=== PATIENT | female | born 1995 | race Caucasian/White ===

== ENCOUNTER 2017-10-09 17:55 | Emergency (ER) | payer OTHER ==
[~2017-10-09] VITALS: Ht 152.4 cm; Wt 53.2 kg
[2017-10-09 18:19] VITALS: BP 109/56
--- NOTE | 2017-10-09 19:42 | NUR ---
PATIENT AMBULATED TO ER CHAIR B
--- NOTE | 2017-10-09 19:47 | NUR ---
PT CAME IN WITH C/O LOWER BACK PAIN [id number], PT DENIES ANY TRAUMA, PAIN, FEVER OR CHILLS WITH URINATION, COMPLAINS OF FREQUENT URINATIONS. NO OTHER S/S OF DISTRESS NOTED. MADE AWARE
--- NOTE | 2017-10-09 20:42 | NUR ---
pt sitting comfortable, no s/s of distress noted. Awating for lab results.
[2017-10-09 20:48] LABS: BILIRUBIN,URINE NEGATIVE (NEGATIVE); BLOOD, URINE NEGATIVE (NEGATIVE); COLOR,URINE YELLOW (YELLOW); LEUKOCYTE ESTERASE ,URINE 2+ (NEGATIVE); NITRITE, URINE NEGATIVE (NEGATIVE); PH,URINE 6.5 (5.0-9.0); UGLUCOSE NEGATIVE (NEGATIVE)
[2017-10-09 20:49] LABS: APPEARANCE,URINE HAZY (CLEAR)
--- NOTE | 2017-10-09 20:55 | NUR ---
PHYSCIAN WITH PT, PT IN STABLE CONDITION
[2017-10-09 20:58] LABS: RBC,URINE NONE SEEN /HPF (0-5)
[2017-10-09 21:05] VITALS: BP 110/62
--- NOTE | 2017-10-09 21:05 | NUR ---
Patient discharged with v/s stable. Written and verbal after care instructions given and explained. Patient alert, oriented and verbalized understanding of instructions. Ambulatory with steady gait. All questions addressed prior to discharge. ID band removed. Patient advised to follow up with PMD. Rx of MACROBID CAPSULE 100 MG, MOTRIN 800 MG given. Patient educated on indication of medication including possible reaction and side effects. Opportunity to ask questions provided and answered.
== END 2017-10-09 21:05 | disposition home or self-care (01) ==
LOC: MED 17:55
DX: N39.0 Urinary tract infection, site not specified (principal)
CPT/HCPCS: 81001; 81025; 87086; 99284

== ENCOUNTER 2018-04-25 16:02 | Emergency (ER) | payer OTHER ==
[~2018-04-25] VITALS: Ht 154.9 cm; Wt 53.1 kg
[2018-04-25 16:15] VITALS: BP 108/65
--- NOTE | 2018-04-25 19:39 | NUR ---
Lalitha oswald in [facility] - 04/25/18 at 1942 by JIM PT TAKEN TO BED 3
--- NOTE | 2018-04-25 20:21 | NUR ---
CALLED IN A DN OUT OF LOBBY X 3 WITHOUT ANSWER. PATIENT LEFT WITHOUT BEING SEEN BY DR. CASTAÑEDA. NO FURTHER CARE PROVIDED FOR PATIENT.
--- NOTE | 2018-04-25 20:21 | NUR ---
Note margret in ED - 04/25/18 at 2048 by MOLLY CALLED IN A DN OUT OF LOBBY X 3 WITHOUT ANSWER. PATIENT LEFT WITHOUT BEING SEEN BY DR. CABALLERO. NO FURTHER CARE PROVIDED FOR PATIENT.
== END 2018-04-25 20:21 | disposition left against medical advice (07) ==
LOC: MED 16:02
DX: R21 Rash and other nonspecific skin eruption (principal); Z53.21 Procedure and treatment not carried out due to patient leaving prior to being seen by health care provider

== ENCOUNTER 2018-05-31 12:12 | Emergency (ER) | payer OTHER ==
[~2018-05-31] VITALS: Ht 162.6 cm; Wt 53.5 kg
--- NOTE | 2018-05-31 12:14 | NUR ---
PT AMBULATED TO BED 6
[2018-05-31 12:17] VITALS: BP 123/73
--- NOTE | 2018-05-31 12:31 | NUR ---
23 yo f bib mother w/ c/o sob related to allergic reaction to a new medication she took this morning called misoprostol (cytotec) to abort a . Pt received the medication from the clinic. Mother at pt bedside at this time, unaware of pt . Will re-assess pt when the mother steps out of pt room. Pt presents to ED w/ vss. RR even and unlabored, lungs bl clear. No airway obstruction, o2 sat 100%, R18. No discoloration of the face or nail beds. Pt presents w/ rash w/ large red wheals noted generalized over the body, mainly the shoulders, chest, and back. aaox4, gcs 15, cms intact, speaking in full, complete and appropriate sentences. reports 10/10 abd cramping. Pt unsure if she has begun to bleed yet or not. ER MD aware of pt status. Pt needs met, safety precautions in place. Will continue to monitor.
[2018-05-31] MEDS ORDERED: KETOROLAC 60 MG/2 ML VIAL IM ONE (12:45)
[2018-05-31] MEDS ORDERED: MORPHINE SULFATE 4 MG/ML SYR IM ONE (13:40)
[2018-05-31] MEDS ORDERED: NACL 0.9% 1,000 ML IV ONE (15:15)
[2018-05-31 16:01] VITALS: BP 105/68
--- NOTE | 2018-05-31 16:02 | NUR ---
Patient discharged with v/s stable. Written and verbal after care instructions given and explained. Patient alert, oriented and verbalized understanding of instructions. Ambulatory with steady gait. All questions addressed prior to discharge. ID band removed. Patient advised to follow up with PMD. Rx of PREDNISONE, BENADRYL, MOTRIN, MACROBID, AND NORCO given. Patient educated on indication of medication including possible reaction and side effects. Opportunity to ask questions provided and answered.
== END 2018-05-31 16:02 | disposition home or self-care (01) ==
LOC: MED 12:12
DX: R06.02 Shortness of breath (principal); T47.1X5A Adverse effect of other antacids and anti-gastric-secretion drugs, initial encounter; N39.0 Urinary tract infection, site not specified; F17.200 Nicotine dependence, unspecified, uncomplicated; Y92.89 Other specified places as the place of occurrence of the external cause
CPT/HCPCS: 81002; 81025; 96360; 96372; 99284; J1885; J2270; J7030

== ENCOUNTER 2018-10-13 11:21 | Emergency (ER) | payer OTHER ==
[~2018-10-13] VITALS: Ht 152.4 cm; Wt 59.6 kg
--- NOTE | 2018-10-13 11:27 | NUR ---
PT AMBULATES TO BED 4
[2018-10-13 11:29] VITALS: BP 128/60
--- NOTE | 2018-10-13 11:29 | NUR ---
Patient being evaluated by physician at bedside.
--- NOTE | 2018-10-13 11:30 | NUR ---
23Y/F BIB MOTHER WITH C/O RASH WITH BURNING SENSATION ON LT ARM, NECK, LT LEG X 2 DAYS AFTER INGESTING MISOPROSTOL FOR . + SWELLING, + REDNESS, DENIES SOB, WAS SEEN ON 08/13/18 FOR HIVES AND PRURITIS. PT IS AAOX4, VSS AT THIS TIME, BED DOWN, LOW, LOCKED, BEDRAIL UP X 1, ER MD AWARE AND NOTIFIED OF PT STATUS. HX; DENIES RX; DENIES
[2018-10-13] MEDS ORDERED: diphenhydrAMINE 50 MG/ML VIAL IM ONE (11:35)
[2018-10-13] MEDS ORDERED: methylPREDNISolone SS 125 MG in WATER STERILE 2 ML IM ONE (11:35)
[2018-10-13 12:13] VITALS: BP 125/59
--- NOTE | 2018-10-13 12:13 | NUR ---
Patient discharged with v/s stable. Written and verbal after care instructions given and explained. Patient alert, oriented and verbalized understanding of instructions. Ambulatory with steady gait. All questions addressed prior to discharge. ID band removed. Patient advised to follow up with PMD. Rx of allergra given. Patient educated on indication of medication including possible reaction and side effects. Opportunity to ask questions provided and answered.
== END 2018-10-13 12:13 | disposition home or self-care (01) ==
LOC: MED 11:21
DX: L50.9 Urticaria, unspecified (principal)
CPT/HCPCS: 96372; 99283; J1200; J2930

== ENCOUNTER 2019-08-02 03:03 | Emergency (ER) | payer OTHER ==
[~2019-08-02] VITALS: Ht 152.4 cm; Wt 56.7 kg
--- NOTE | 2019-08-02 03:09 | NUR ---
TO BED # 04 AMBULATORY
[2019-08-02 03:15] VITALS: BP 112/61
--- NOTE | 2019-08-02 03:15 | NUR ---
24 Y/O F PRESENTS TO ED WITH C/O INTERMINTENT DIFFICULTY BREATHING X1 MONTH, INCREASING WORSE STARTING AT 0300AM. PT REPORTS AWAKING FROM SLEEPING AND HAVING DIFFICULTY BREATHING. PT STATES PRODCUTIVE COUGH WITH WHITE/YELLOW PHELGM. PT REPORTS SMOKING MARIJUANA SINCE AGE 20 AND STOPPING OVER A MONTH AGO, RECENTLY STARTED AGAIN X3 WEEKS AGO. BILATERAL LUNGS CLEAR THROUGHOUT. O2 SATURATION MAINTAINED AT 100% ON RA. RESPIRATIONS EVEN AND UNLABORED. PT ABLE TO SPEAK FULL SENTENCES. BEDRAIL X1 UP. WILL CONTINUE TO MONITOR.
--- NOTE | 2019-08-02 03:35 | NUR ---
FEMALE CHAPERONED EMT TO COMPLETE EKG.
--- NOTE | 2019-08-02 04:15 | NUR ---
Patient discharged with v/s stable. Written and verbal after care instructions given and explained. Patient alert, oriented and verbalized understanding of instructions. Ambulatory with steady gait. All questions addressed prior to discharge. ID band removed. Patient advised to follow up with PMD. Rx of PROTONIX AND XANAX given. Patient educated on indication of medication including possible reaction and side effects. Opportunity to ask questions provided and answered.
== END 2019-08-02 04:15 | disposition home or self-care (01) ==
LOC: MED 03:03
DX: R06.4 Hyperventilation (principal); K21.9 Gastro-esophageal reflux disease without esophagitis; R05 Cough; F17.200 Nicotine dependence, unspecified, uncomplicated
CPT/HCPCS: 36600; 82803; 93005; 99284

== ENCOUNTER 2019-09-25 09:46 | Emergency (ER) | payer OTHER ==
[~2019-09-25] VITALS: Ht 154.9 cm; Wt 58.1 kg
[2019-09-25 09:54] VITALS: BP 118/63
--- NOTE | 2019-09-25 09:58 | NUR ---
PT TO RESTROOM
[2019-09-25] MEDS ORDERED: ONDANSETRON 4 MG/2 ML VIAL IVP ONE (10:20)
[2019-09-25] MEDS ORDERED: KETOROLAC 30 MG/ML VIAL IVP ONE (10:20)
[2019-09-25] MEDS ORDERED: NACL 0.9% 500 ML IV ONE (10:20)
--- NOTE | 2019-09-25 10:45 | NUR ---
24YO F C/O ABDOMINAL PAIN FOR A FEW HOURS. PT DESCRIBES SHARP PAIN OF 10/10. +N/V/D. NO MEDS TAKEN. LAST MEAL AT 7PM LAST NIGHT, ATE A BURRITO. LBM 09/25/19. PT ON HER 3RD DAY OF MENSTRUAL PERIOD BUT STATES THAT "PAIN DOES NOT FEEL LIKE MENSTRUAL CRAMPS." ABDOMEN SOFT, BOWEL SOUNDS ACTIVE ON ALL QUADRANTS. VSS; PATIENT POSITIONED FOR COMFORT; HOB ELEVATED; BEDRAILS UP X2; BED DOWN. ER MD MADE AWARE OF PT STATUS. PMH: ANXIETY, KINDEY INFXN, 2019 MEDS: NONE ALLERGY: MISOPROSTOL
[2019-09-25 11:37] LABS: BASOPHILS % (AUTO) 0.2 % (0.0-2.0); EOSINOPHILS # (AUTO) 0.1 K/uL (0-0.4); EOSINOPHILS % (AUTO) 0.5 % (0.0-4.0); HEMATOCRIT 44.8 % (36-48); HEMOGLOBIN 14.6 g/dL (12.0-16.0); LYMPHOCYTES % (AUTO) 6.3 % (20.5-51.1); MEAN CORPUSCULAR HEMOGLOBIN 28 pg (27-31); MEAN CORPUSCULAR HGB CONC 33 g/dL (33-37); MEAN CORPUSCULAR VOLUME 86.4 fL (80-94); MONOCYTES # (AUTO) 0.8 K/uL (0.8-1.0); MONOCYTES % (AUTO) 4.8 % (1.7-9.3); NEUTROPHILS # (AUTO) 14.3 K/uL (1.8-7.7); NEUTROPHILS % (AUTO) 88.2 % (42.2-75.2); PLATELET COUNT (AUTO) 251 K/uL (140-450); RED BLOOD CELL COUNT(AUTO) 5.19 MIL/uL (4.20-5.40); RED CELL DISTRIBUTION WIDTH 14.2 % (11.6-13.7); WHITE BLOOD COUNT (AUTO) 16.2 K/uL (4.8-10.8)
[2019-09-25 12:01] LABS: ALBUMIN 3.8 g/dL (3.4-5.0); ANION GAP 14.4 (8-16); CARBON DIOXIDE 23.9 mmol/L (21-32); CREATININE 0.7 mg/dL (0.6-1.3); POTASSIUM 4.3 mmol/L (3.5-5.1); TOTAL BILIRUBIN 0.3 mg/dL (0.0-1.0)
--- NOTE | 2019-09-25 12:35 | NUR ---
Patient discharged with v/s stable. Written and verbal after care instructions given and explained. Patient alert, oriented and verbalized understanding of instructions. Ambulatory with steady gait. All questions addressed prior to discharge. ID band removed. Patient advised to follow up with PMD. Rx of TRAMADOL, ZOFRAN given. Patient educated on indication of medication including possible reaction and side effects. Opportunity to ask questions provided and answered.
--- NOTE | 2019-09-25 12:35 | NUR ---
IV removed, catheter intact and site benign. Applied folded 4x4 gauze and tape to stop bleeding.
[2019-09-25 12:36] VITALS: BP 121/74
== END 2019-09-25 12:35 | disposition home or self-care (01) ==
LOC: MED 09:46
DX: A08.4 Viral intestinal infection, unspecified (principal); J45.909 Unspecified asthma, uncomplicated; F17.200 Nicotine dependence, unspecified, uncomplicated; Z88.8 Allergy status to other drugs, medicaments and biological substances
CPT/HCPCS: 36415; 74022; 80053; 81025; 85025; 96361; 96374; 96375; 99284; J1885; J2405; J7030

== ENCOUNTER 2019-11-06 08:05 | Emergency (ER) | payer OTHER ==
[~2019-11-06] VITALS: Ht 152.4 cm; Wt 56.7 kg
[2019-11-06 08:12] VITALS: BP 100/72
--- NOTE | 2019-11-06 08:17 | NUR ---
Patient ambulated to bed 6. RN evaluating patient at bedside.
--- NOTE | 2019-11-06 08:19 | NUR ---
Dr. Garrido is evaluating the patient at bedside.
--- NOTE | 2019-11-06 08:21 | NUR ---
24/F BIB SELF C/O COUGH X2 MONTHS. DENIES TAKING ANY OTC MEDICATIONS IN ATTEMPT TO RELIEVE COUGH. O2 SAT 98% RA. PT STATES SHE WAS GIVEN AN VENTOLIN INHALER AT URGENT CARE [place] AND HAS USED THAT WITH NO RELIEF. PATIENT STATES PAIN OF 5/10 AT THIS TIME. PATIENT POSITIONED FOR COMFORT; HOB ELEVATED; BEDRAILS UP X1; BED DOWN. ER MD MADE AWARE OF PT STATUS.
--- NOTE | 2019-11-06 08:32 | NUR ---
Patient discharged with v/s stable. Written and verbal after care instructions given and explained. Patient alert, oriented and verbalized understanding of instructions. Ambulatory with steady gait. All questions addressed prior to discharge. ID band removed. Patient advised to follow up with PMD. Rx of MOTRIN & PREDNISONE given. Patient educated on indication of medication including possible reaction and side effects. Opportunity to ask questions provided and answered.
[2019-11-06 08:33] VITALS: BP 100/72
== END 2019-11-06 08:32 | disposition home or self-care (01) ==
LOC: MED 08:05
DX: J45.909 Unspecified asthma, uncomplicated (principal); F12.10 Cannabis abuse, uncomplicated; Z87.448 Personal history of other diseases of urinary system; Z88.9 Allergy status to unspecified drugs, medicaments and biological substances
CPT/HCPCS: 99283

== ENCOUNTER 2023-12-19 20:30 | Emergency (ER) | payer OTHER ==
[~2023-12-19] VITALS: Ht 152.4 cm; Wt 49.0 kg
[2023-12-19 20:35] VITALS: BP 110/61; PULSE 69; RESP 18; TEMP 97.8; O2SAT 99
[2023-12-19 22:19] LABS: BASOPHILS # (AUTO) 0.1 K/uL (0.00-0.22); BASOPHILS % (AUTO) 0.9 % (0.0-2.0); EOSINOPHILS # (AUTO) 0.2 K/uL (0-0.4); EOSINOPHILS % (AUTO) 2.4 % (0.0-4.0); HEMOGLOBIN 13.5 g/dL (12.0-16.0); LYMPHOCYTES % (AUTO) 22.2 % (20.5-51.1); MEAN CORPUSCULAR HEMOGLOBIN 29 pg (27-31); MEAN CORPUSCULAR HGB CONC 35 g/dL (33-37); MEAN CORPUSCULAR VOLUME 84.4 fL (80-94); MONOCYTES # (AUTO) 0.8 K/uL (0.8-1.0); MONOCYTES % (AUTO) 9.1 % (1.7-9.3); NEUTROPHILS # (AUTO) 5.9 K/uL (1.8-7.7); NEUTROPHILS % (AUTO) 65.4 % (42.2-75.2); PLATELET COUNT (AUTO) 239 K/uL (140-450); RED BLOOD CELL COUNT(AUTO) 4.63 MIL/uL (4.20-5.40); RED CELL DISTRIBUTION WIDTH 14.2 % (11.6-13.7)
[2023-12-19 22:36] LABS: ANION GAP 12.6 (8-16); CALCIUM 8.2 mg/dL (8.5-10.1); CARBON DIOXIDE 27.1 mmol/L (21-32); CREATININE 0.7 mg/dL (0.6-1.3); POTASSIUM 3.7 mmol/L (3.5-5.1)
[2023-12-19] MEDS ORDERED: NAPR-1704 PO (23:23)
[2023-12-19 23:31] VITALS: BP 110/61; PULSE 69; RESP 18; TEMP 97.8; O2SAT 99
== END 2023-12-19 23:31 | disposition home or self-care (01) ==
LOC: MED 20:30
DX: R07.89 Other chest pain (principal); J45.909 Unspecified asthma, uncomplicated; N28.9 Disorder of kidney and ureter, unspecified; Z79.899 Other long term (current) drug therapy; Z88.8 Allergy status to other drugs, medicaments and biological substances
CPT/HCPCS: 36415; 71045; 80048; 84484; 85025; 93005; 99285